=== PATIENT | female | born 1940 | race Caucasian/White ===

== ENCOUNTER 2018-12-16 20:26 | Inpatient (IN) | payer MEDICARE, OTHER ==
[~2018-12-16] VITALS: Ht 160 cm; Wt 65.8 kg
--- NOTE | 2018-12-16 20:47 | NUR ---
ANTONIA. REPORT RECEIVED FROM EMS. PT C/O SOB WITH COUGH X A FEW DAYS. PT HAD CP AT HOME AT 19:40 BUT RESOLVED NOW. PT'S AOX4. RESPS EVEN AND UNLABORED. ALL MONITORS IN PLACE. CALL LIGHT WITHIN REACH. EDMD AT BEDSIDE TO EVALUATE.
[2018-12-16] MEDS ORDERED: TOPI100T8 PO (20:50)
[2018-12-16] MEDS ORDERED: METH10TA2 PO (20:51)
[2018-12-16] MEDS ORDERED: ACETAMINOPHEN 325 MG TABLET PO ONE (21:00)
[2018-12-16 21:19] LABS: MEAN CORPUSCULAR HEMOGLOBIN 32.9 pg (27.0-34.8); MEAN CORPUSCULAR HGB CONC 32.6 g/dL (32.4-35.8); MEAN CORPUSCULAR VOLUME 100.9 fL (80-100); MEAN PLATELET VOLUME 7.2 fL (7.4-10.4); PLATELET COUNT 351 x10^3/uL (130-400); RED BLOOD COUNT 4.37 x10^6/uL (3.82-5.3); RED CELL DISTRIBUTION WIDTH 13.9 % (9.6-15.2)
[2018-12-16 21:32] LABS: ALANINE AMINOTRANSFERASE 26 U/L (12-78); ANION GAP 11 mmol/L (5-15); CALCIUM 8.8 mg/dL (8.5-10.1); CHLORIDE 104 mmol/L (98-107); CREATININE 0.85 mg/dL (0.55-1.02)
[2018-12-16 21:34] LABS: ALKALINE PHOSPHATASE 169 U/L (45-117); BASOPHILS % (AUTO) 0 % (0-1); BILIRUBIN,TOTAL 1.2 mg/dL (0.2-1.0); EOSINOPHILS # (AUTO) 0.06 x10^3/uL (0-0.4); EOSINOPHILS % (AUTO) 0 % (1-7); LYMPHOCYTES # (AUTO) 0.97 x10^3/uL (1-3.4); LYMPHOCYTES % (AUTO) 6 % (22-44); MD SCAN; MONOCYTES # (AUTO) 0.74 x10^3/uL (0.2-0.8); MONOCYTES % (AUTO) 5 % (2-9); NEUTROPHILS # (AUTO) 13.95 x10^3/uL (1.8-6.8); NEUTROPHILS % (AUTO) 89 % (42-75)
[2018-12-16] MEDS ORDERED: ACETAMINOPHEN 325 MG TABLET ONE (21:34)
[2018-12-16 21:35] LABS: ALBUMIN 2.7 g/dL (3.4-5.0)
--- NOTE | 2018-12-16 21:38 | NUR ---
PT MEDICATED PER EMAR FOR FEVER. PT TOLERATED WELL.
[2018-12-16] MEDS ORDERED: CEFTRIAXONE PMX 1GM/50ML 50 ML ONE (21:59)
[2018-12-16] MEDS: AZITHROMYCIN 500 MG in SODIUM CHLORIDE 0.9% 250 ML IV ONE (22:00)
[2018-12-16] MEDS ORDERED: CEFTRIAXONE PMX 1GM/50ML 50 ML IV ONE (22:00)
--- NOTE | 2018-12-16 22:07 | NUR ---
ABX INFUSING AT THIS TIME. PT TOLERATED WELL.
--- NOTE | 2018-12-16 22:26 | NUR ---
REPORT GIVEN TO LARA TERAN. ALL QUESTIONS ANSWERED.
[2018-12-16] MEDS ORDERED: ACETAMINOPHEN 325 MG TABLET PO PRN (22:30)
[2018-12-16] MEDS ORDERED: ONDANSETRON 2MG/ML, 2ML IVPush PRN (22:30)
[2018-12-16] MEDS ORDERED: ALBUTEROL/IPRATROPIUM 2.5MG/0.5MG, 3 ML HHN PRN (22:30)
[2018-12-16 22:55] VITALS: BP 120/72
[2018-12-16] MEDS: SODIUM CHLORIDE 0.9% 1,000 ML IV SCH (22:58)
[2018-12-17 03:55] VITALS: BP 96/64
[2018-12-17 04:04] VITALS: BP 96/64
[2018-12-17 05:31] LABS: MEAN CORPUSCULAR HEMOGLOBIN 32.2 pg (27.0-34.8); MEAN CORPUSCULAR HGB CONC 32.1 g/dL (32.4-35.8); MEAN CORPUSCULAR VOLUME 100.5 fL (80-100); MEAN PLATELET VOLUME 6.7 fL (7.4-10.4); PLATELET COUNT 293 x10^3/uL (130-400); RED BLOOD COUNT 3.89 x10^6/uL (3.82-5.3); RED CELL DISTRIBUTION WIDTH 14.4 % (9.6-15.2)
[2018-12-17 05:38] LABS: ANION GAP 8 mmol/L (5-15); CALCIUM 8.1 mg/dL (8.5-10.1); CHLORIDE 107 mmol/L (98-107)
[2018-12-17 05:39] LABS: CREATININE 0.78 mg/dL (0.55-1.02)
[2018-12-17 05:47] LABS: BASOPHILS # (AUTO) 0.01 x10^3/uL (0-0.1); BASOPHILS % (AUTO) 0 % (0-1); EOSINOPHILS # (AUTO) 0.17 x10^3/uL (0-0.4); EOSINOPHILS % (AUTO) 2 % (1-7); LYMPHOCYTES # (AUTO) 1.09 x10^3/uL (1-3.4); LYMPHOCYTES % (AUTO) 10 % (22-44); MD SCAN; MONOCYTES # (AUTO) 0.63 x10^3/uL (0.2-0.8); MONOCYTES % (AUTO) 6 % (2-9); NEUTROPHILS # (AUTO) 8.68 x10^3/uL (1.8-6.8); NEUTROPHILS % (AUTO) 82 % (42-75)
[2018-12-17] MEDS: METHADONE 10 MG TABLET PO SCH ×2 (06:09→21:58)
[2018-12-17] MEDS: TOPIRAMATE 100 MG TABLET PO SCH ×2 (06:09→21:58)
[2018-12-17 07:39] VITALS: BP 107/65
[2018-12-17] MEDS: LEVOFLOXACIN/PMX 750MG/150ML 150 ML IV SCH (08:24)
[2018-12-17] MEDS: SODIUM CHLORIDE 0.9% 1,000 ML IV SCH ×2 (11:11→21:58)
[2018-12-17] MEDS ORDERED: POTASSIUM CHLORIDE 20 MEQ TAB.ER.PRT PO ONE (12:30)
[2018-12-17] MEDS: GUAIFENESIN 200 MG TABLET PO SCH ×3 (12:37→21:58)
[2018-12-17] MEDS: ENOXAPARIN 40 MG/0.4 ML SQ SCH (12:37)
[2018-12-17 14:00] VITALS: BP 109/70
[2018-12-17 20:16] VITALS: BP 105/68
[2018-12-18 03:34] VITALS: BP 106/70
[2018-12-18] MEDS: TOPIRAMATE 100 MG TABLET PO SCH ×2 (06:16→21:18)
[2018-12-18] MEDS: GUAIFENESIN 200 MG TABLET PO SCH ×4 (06:16→21:17)
[2018-12-18] MEDS: METHADONE 10 MG TABLET PO SCH ×2 (06:16→21:18)
[2018-12-18 06:28] LABS: BASOPHILS # (AUTO) 0.02 x10^3/uL (0-0.1); BASOPHILS % (AUTO) 0 % (0-1); EOSINOPHILS # (AUTO) 0.17 x10^3/uL (0-0.4); EOSINOPHILS % (AUTO) 2 % (1-7); LYMPHOCYTES # (AUTO) 0.78 x10^3/uL (1-3.4); LYMPHOCYTES % (AUTO) 10 % (22-44); MD NO; MEAN CORPUSCULAR HGB CONC 32.4 g/dL (32.4-35.8); MEAN CORPUSCULAR VOLUME 101.8 fL (80-100); MEAN PLATELET VOLUME 6.6 fL (7.4-10.4); MONOCYTES # (AUTO) 0.59 x10^3/uL (0.2-0.8); MONOCYTES % (AUTO) 7 % (2-9); NEUTROPHILS # (AUTO) 6.35 x10^3/uL (1.8-6.8); NEUTROPHILS % (AUTO) 80 % (42-75); PLATELET COUNT 304 x10^3/uL (130-400); RED BLOOD COUNT 3.63 x10^6/uL (3.82-5.3); RED CELL DISTRIBUTION WIDTH 14.3 % (9.6-15.2)
[2018-12-18 06:31] LABS: ANION GAP 5 mmol/L (5-15); CHLORIDE 112 mmol/L (98-107); CREATININE 0.67 mg/dL (0.55-1.02)
[2018-12-18 07:45] VITALS: BP 95/61
[2018-12-18] MEDS: LEVOFLOXACIN/PMX 750MG/150ML 150 ML IV SCH (08:40)
[2018-12-18] MEDS: SODIUM CHLORIDE 0.9% 1,000 ML IV SCH ×2 (08:41→17:21)
[2018-12-18] MEDS: ENOXAPARIN 40 MG/0.4 ML SQ SCH (11:51)
[2018-12-18 13:55] VITALS: BP 99/63
[2018-12-18 19:12] VITALS: BP 98/61
[2018-12-19 02:13] VITALS: BP 99/60
[2018-12-19] MEDS: SODIUM CHLORIDE 0.9% 1,000 ML IV SCH (02:56)
[2018-12-19 05:27] LABS: BASOPHILS # (AUTO) 0.01 x10^3/uL (0-0.1); BASOPHILS % (AUTO) 0 % (0-1); EOSINOPHILS # (AUTO) 0.19 x10^3/uL (0-0.4); EOSINOPHILS % (AUTO) 3 % (1-7); LYMPHOCYTES # (AUTO) 1.16 x10^3/uL (1-3.4); LYMPHOCYTES % (AUTO) 19 % (22-44); MD NO; MEAN CORPUSCULAR HEMOGLOBIN 32.1 pg (27.0-34.8); MEAN CORPUSCULAR VOLUME 100.3 fL (80-100); MEAN PLATELET VOLUME 6.5 fL (7.4-10.4); MONOCYTES # (AUTO) 0.56 x10^3/uL (0.2-0.8); MONOCYTES % (AUTO) 9 % (2-9); NEUTROPHILS # (AUTO) 4.18 x10^3/uL (1.8-6.8); NEUTROPHILS % (AUTO) 69 % (42-75); PLATELET COUNT 323 x10^3/uL (130-400); RED BLOOD COUNT 3.58 x10^6/uL (3.82-5.3); RED CELL DISTRIBUTION WIDTH 14.5 % (9.6-15.2)
[2018-12-19 05:34] LABS: ANION GAP 8 mmol/L (5-15); CALCIUM 8.1 mg/dL (8.5-10.1); CHLORIDE 114 mmol/L (98-107)
[2018-12-19] MEDS: GUAIFENESIN 200 MG TABLET PO SCH ×4 (06:22→21:08)
[2018-12-19] MEDS: METHADONE 10 MG TABLET PO SCH ×2 (06:22→21:08)
[2018-12-19] MEDS: TOPIRAMATE 100 MG TABLET PO SCH ×2 (06:22→21:08)
[2018-12-19 07:28] VITALS: BP 97/65
[2018-12-19] MEDS: LEVOFLOXACIN/PMX 750MG/150ML 150 ML IV SCH (09:09)
[2018-12-19] MEDS: ENOXAPARIN 40 MG/0.4 ML SQ SCH (11:41)
[2018-12-19 14:05] VITALS: BP 110/59
[2018-12-19] MEDS: POTASSIUM CHLORIDE 20 MEQ TAB.ER.PRT PO SCH (17:18)
[2018-12-19] MEDS: ASCORBIC ACID 500 MG TABLET PO SCH (17:18)
[2018-12-19] MEDS ORDERED: POLYETHYLENE GLYCOL 17 GM PACKET NG PRN (18:00)
[2018-12-19 19:42] VITALS: BP 134/83
[2018-12-19] MEDS: SENNA/DOCUSATE TABLET PO SCH (21:08)
[2018-12-20 01:49] VITALS: BP 132/80
[2018-12-20] MEDS: TOPIRAMATE 100 MG TABLET PO SCH ×2 (06:14→21:29)
[2018-12-20] MEDS: METHADONE 10 MG TABLET PO SCH ×2 (06:14→21:29)
[2018-12-20] MEDS: GUAIFENESIN 200 MG TABLET PO SCH ×4 (06:14→20:11)
[2018-12-20] MEDS: POTASSIUM CHLORIDE 20 MEQ TAB.ER.PRT PO SCH ×2 (08:00→16:04)
[2018-12-20] MEDS: SENNA/DOCUSATE TABLET PO SCH ×2 (08:05→20:11)
[2018-12-20] MEDS: LEVOFLOXACIN/PMX 750MG/150ML 150 ML IV SCH (08:05)
[2018-12-20] MEDS: MAGNESIUM CARBONATE 54 MG/5 ML ORAL SOL PO SCH (08:05)
[2018-12-20] MEDS: ASCORBIC ACID 500 MG TABLET PO SCH ×2 (08:05→16:04)
[2018-12-20 08:17] VITALS: BP 135/82
[2018-12-20] MEDS: ENOXAPARIN 40 MG/0.4 ML SQ SCH (11:26)
[2018-12-20 12:46] VITALS: BP 126/72
[2018-12-20] MEDS ORDERED: MAGNESIUM CITRATE 300ML ORAL SOL PO PRN (16:30)
[2018-12-20 19:45] VITALS: BP 131/83
[2018-12-21 02:00] VITALS: BP 109/71
[2018-12-21] MEDS: METHADONE 10 MG TABLET PO SCH ×2 (05:27→21:33)
[2018-12-21] MEDS: TOPIRAMATE 100 MG TABLET PO SCH ×2 (05:27→21:33)
[2018-12-21] MEDS: GUAIFENESIN 200 MG TABLET PO SCH ×5 (05:27→21:33)
[2018-12-21] MEDS: POTASSIUM CHLORIDE 20 MEQ TAB.ER.PRT PO SCH ×2 (08:00→16:49)
[2018-12-21 08:12] VITALS: BP 103/67
[2018-12-21] MEDS: MAGNESIUM CARBONATE 54 MG/5 ML ORAL SOL PO SCH (09:00)
[2018-12-21] MEDS: SENNA/DOCUSATE TABLET PO SCH ×3 (09:00→21:00)
[2018-12-21] MEDS: LEVOFLOXACIN/PMX 750MG/150ML 150 ML IV SCH (09:17)
[2018-12-21] MEDS: ASCORBIC ACID 500 MG TABLET PO SCH ×2 (09:17→16:49)
[2018-12-21] MEDS: ENOXAPARIN 40 MG/0.4 ML SQ SCH (11:20)
[2018-12-21 13:13] VITALS: BP 128/79
[2018-12-21 18:56] VITALS: BP 110/72
[2018-12-22 00:54] VITALS: BP 103/69
[2018-12-22] MEDS: METHADONE 10 MG TABLET PO SCH ×2 (05:43→21:09)
[2018-12-22] MEDS: TOPIRAMATE 100 MG TABLET PO SCH ×2 (05:43→21:09)
[2018-12-22] MEDS: GUAIFENESIN 200 MG TABLET PO SCH ×4 (05:43→21:08)
[2018-12-22 06:01] LABS: CREATININE 0.64 mg/dL (0.55-1.02)
[2018-12-22 07:19] VITALS: BP 113/74
[2018-12-22] MEDS: POTASSIUM CHLORIDE 20 MEQ TAB.ER.PRT PO SCH ×2 (08:00→16:30)
[2018-12-22] MEDS: SENNA/DOCUSATE TABLET PO SCH ×2 (08:03→21:00)
[2018-12-22] MEDS: LEVOFLOXACIN 750 MG TABLET PO SCH (08:16)
[2018-12-22] MEDS: MAGNESIUM CARBONATE 54 MG/5 ML ORAL SOL PO SCH (08:17)
[2018-12-22] MEDS: ASCORBIC ACID 500 MG TABLET PO SCH ×2 (08:17→16:30)
[2018-12-22] MEDS: ENOXAPARIN 40 MG/0.4 ML SQ SCH (11:38)
[2018-12-22 13:07] VITALS: BP 136/57
[2018-12-22 19:31] VITALS: BP 122/79
[2018-12-23 00:52] VITALS: BP 116/75
[2018-12-23 05:44] LABS: ALBUMIN 2.5 g/dL (3.4-5.0); ANION GAP 8 mmol/L (5-15); CALCIUM 8.8 mg/dL (8.5-10.1); CHLORIDE 112 mmol/L (98-107); CREATININE 0.69 mg/dL (0.55-1.02)
[2018-12-23] MEDS: TOPIRAMATE 100 MG TABLET PO SCH (05:44)
[2018-12-23] MEDS: GUAIFENESIN 200 MG TABLET PO SCH ×2 (05:44→11:07)
[2018-12-23] MEDS: METHADONE 10 MG TABLET PO SCH (05:45)
[2018-12-23 06:01] LABS: BASOPHILS # (AUTO) 0.02 x10^3/uL (0-0.1); BASOPHILS % (AUTO) 0 % (0-1); EOSINOPHILS # (AUTO) 0.33 x10^3/uL (0-0.4); EOSINOPHILS % (AUTO) 5 % (1-7); LYMPHOCYTES # (AUTO) 1.55 x10^3/uL (1-3.4); LYMPHOCYTES % (AUTO) 21 % (22-44); MD NO; MEAN CORPUSCULAR HGB CONC 32.6 g/dL (32.4-35.8); MEAN CORPUSCULAR VOLUME 101.1 fL (80-100); MEAN PLATELET VOLUME 6.5 fL (7.4-10.4); MONOCYTES # (AUTO) 0.54 x10^3/uL (0.2-0.8); MONOCYTES % (AUTO) 8 % (2-9); NEUTROPHILS # (AUTO) 4.82 x10^3/uL (1.8-6.8); NEUTROPHILS % (AUTO) 66 % (42-75); PLATELET COUNT 503 x10^3/uL (130-400); RED BLOOD COUNT 4.11 x10^6/uL (3.82-5.3); RED CELL DISTRIBUTION WIDTH 14.2 % (9.6-15.2)
[2018-12-23 06:35] VITALS: BP 102/69
[2018-12-23] MEDS: POTASSIUM CHLORIDE 20 MEQ TAB.ER.PRT PO SCH (08:00)
[2018-12-23] MEDS: SENNA/DOCUSATE TABLET PO SCH (08:04)
[2018-12-23] MEDS: ASCORBIC ACID 500 MG TABLET PO SCH (08:05)
[2018-12-23] MEDS: LEVOFLOXACIN 750 MG TABLET PO SCH (08:05)
[2018-12-23] MEDS: MAGNESIUM CARBONATE 54 MG/5 ML ORAL SOL PO SCH (08:06)
[2018-12-23] MEDS: ENOXAPARIN 40 MG/0.4 ML SQ SCH (11:50)
[2018-12-23] MEDS ORDERED: LEVO750T26 PO (12:44)
== END 2018-12-23 15:10 | disposition home or self-care (01) | DRG 871 ==
LOC: ED 21:32 → EDIP 22:07 → 4EST 22:45 → DCLOUNGE 12-23 15:02
PROVIDERS: ADMIT Internal Medicine; ATTEND Internal Medicine
DX: A41.9 Sepsis, unspecified organism (principal); J96.01 Acute respiratory failure with hypoxia; J18.9 Pneumonia, unspecified organism; E46 Unspecified protein-calorie malnutrition; F11.20 Opioid dependence, uncomplicated; D53.9 Nutritional anemia, unspecified; E87.6 Hypokalemia; Z68.25 Body mass index [BMI] 25.0-25.9, adult; R65.20 Severe sepsis without septic shock; G89.29 Other chronic pain; G62.9 Polyneuropathy, unspecified
CPT/HCPCS: 36415; 71045; 71250; 80048; 80053; 80069; 82565; 83605; 83735; 84100; 84145; 85025; 87040; 87070; 87205; 93005; 96374; 96375; G0378; J0456; J0696; J1650; J1956; J2405; J7030; J7050